=== PATIENT | female | born 1975 | race African-American/Black ===

== ENCOUNTER 2018-12-07 22:43 | Emergency (ER) | payer SELFPAY ==
[2018-12-07 22:53] VITALS: BP 136/80; PULSE 84; TEMP 98.4; BMI 27.4
--- NOTE | 2018-12-07 23:51 | PDOC ---
Documentation entered by Humble Mack SCRIBE, acting as scribe for Amari Akers MD. Amari Akers MD: This documentation has been prepared by the Frederick sultana Collisia, SCRIBE, under my direction and personally reviewed by me in its entirety. I confirm that the documentation accurately reflects all work, treatment, procedures, and medical decision making performed by me. Attending Attestation - Resident Resident Name: [email or web address] - ED Attending Attestation I have performed the following: I have examined & evaluated the patient, The case was reviewed & discussed with the resident, I agree w/resident's findings & plan, Exceptions are as noted - HPI HPI: 12/07/18 23:44 The patient is a 43 year old female with a significant past medical history of hyperlipidemia and bilateral knee pain who presents to the emergency department with an injury s/p fall prior to arrival to the ED. As per patients friends at the bedside, the patient was out tonight with then drinking and dancing when she was witnessed to have fallen and hit her head and be a bit out of it when she came to. It is noted that the patient had some possible loc of which the patient does not recall. She denies any prior symptom. She denies any chest pain , shortness of breath, headache, dizziness, fever, chills, nausea, vomiting, or diarrhea. She denies any complaints on exam. - Physicial Exam PE: 12/08/18 01:23 Vitals: Triage Vital signs reviewed General Appearance: no acute distress, well nourished well developed, Head: Atraumatic, Eyes: Pupils equal reactive round, extraocular movement intact Neck: Supple;No Nucal rigidity Chest Wall: Nontender Cardiac: Regular rate and rhythym, no murmurs, no rubs, no gallops, Lungs: Clear to auscultation bilateral, good air movement bilaterally, Abdomen: Soft, non distended, normal bowel sounds, non tender to palpation Extremities: Full range of motion to all extremities, no cyanosis, clubbing, or edema Skin: Warm and dry, no rashes or lesions, no rash, no petechiae Neuro: AOX3; Cranial Nerves 2-12 grossly intact, Strength intact to all extremities, Sensation intact to all extremities,gait normal Psych: normal mood, normal affect - Medical Decision Making 12/07/18 23:45 The patient is a 43 year old female with a significant past medical history of hyperlipidemia and bilateral knee pain who presents to the emergency department with an injury s/p fall prior to arrival to the ED. the patient will get a head CT. 43 years old was out drinking with her friends had a fall there was questionable loss of consciousness. Currently she has a normal neurologic examination asking to go home Given fall questionable LOC a CAT scan was performed which demonstrated no acute pathology Patient will return home with her friends and significant other who will check on her tonight every 3 hours to ensure she is arousable Very strict head injury precautions discussed with patient and significant other Findings, need follow-up and strict return instructions discussed.
--- NOTE | 2018-12-07 23:53 | PDOC ---
History of Present Illness - General Chief Complaint: Injury Stated Complaint: FALL Time Seen by Provider: 12/07/18 23:21 - History of Present Illness Initial Comments: Jono Shepherd is a 43yo woman who was BIBA after a fall at a constitution party tonight. She states that she does not remember falling but denies any pain or injury. She has several friends with her in the ED, but none of them witnessed the fall. The friends state that they were told that she did lose consciousness when she fell, and one of the friends states that Ms Shepherd was "out of it" following the fall but was able to get up and recognized her friends. Ms Shepherd is currently intoxicated and unable to provide additional information. Past History - Past Medical History Allergies/Adverse Reactions: Allergies Allergy/AdvReac Type Severity Reaction Status Date / Time No Known Allergies Allergy Verified 04/29/13 18:59 Home Medications: Ambulatory Orders Famotidine [Pepcid -] 20 mg PO DAILY 04/29/13 Simvastatin [Zocor] 40 mg PO HS 04/29/13 Tramadol HCl 50 mg PO 04/29/13 COPD: No Hypercholesterolemia: Yes - Surgical History Gastric Stapling: Yes (SLEEVE) - Suicide/Smoking/Psychosocial Hx Smoking History: Current every day smoker Number of Cigarettes Smoked Daily: 20 Information on smoking cessation initiated: No Review of Systems - Review of Systems Comments:: Could not obtain secondary to intoxication *Physical Exam - Vital Signs Last Vital Signs Temp Pulse Resp BP Pulse Ox 98.4 F 84 18 136/80 100 12/07/18 22:49 12/07/18 22:49 12/07/18 22:49 12/07/18 22:49 12/07/18 22:49 - Physical Exam Comments: General: Comfortable, no acute distress HEENT: No visible injury. No erythema, bogginess, or edema to posterior head. PERRL, EOMI, MMM, voice normal, normal neck ROM, no posterior neck TTP Cards: RRR, no murmur appreciated Pulm: Comfortable on room air, clear to auscultation bilaterally Back: No step-offs, no bony TTP, no abrasion, no erythema, no bruising Abd: Soft, nontender, nondistended Ext: Atraumatic. No LE edema. ROM intact Vasc: Extremities WWP Skin: Normal color, no rashes or lesions Neuro: A&Ox3, CN grossly intact, normal speech, motor/sensory grossly intact and symmetric Psych: Mood appropriate to situation ED Treatment Course - RADIOLOGY Radiology Studies Ordered: Category Date Time Status HEAD CT WITHOUT CONTRAST [CT] Stat CT Scan 12/07/18 23:32 Ordered Medical Decision Making - Medical Decision Making 12/07/18 23:36 Jono Shepherd is a 43yo woman who was BIBA after a fall at a [employer] party tonight, unwitnessed by anyone present, with a possible LOC. She states that she does not remember the fall, denies pain or injury, and currently has no deficits. - No visible head trauma - Observed ambulating in the ED - No neurological deficits currently - Given report of LOC, will CT head to evaluate for bleed. Likely d/c home if CT is negative. Pt reports she had a hysterectomy and cannot be . - According to friends at bedside, will have family/friends with her overnight 12/08/18 00:07 - CT reviewed. No acute abnormalities appreciated. Radiology report pending - Updated Ms Shepherd. Still no pain or other symptoms - Signed out to Dr Banks for the remainder of her ED care. Seen with Dr Akers. Micheline Tilley PGY1 *DC/Admit/Observation/Transfer Diagnosis at time of Disposition: Closed head injury Qualifiers: Encounter type: initial encounter Qualified Code(s): S09.90XA - Unspecified injury of head, initial encounter Alcohol intoxication Qualifiers: Complication of substance-induced condition: uncomplicated Qualified Code(s): F10.920 - Alcohol use, unspecified with intoxication, uncomplicated - Discharge Dispostion Disposition: HOME Condition at time of disposition: Stable Decision to Admit order: No - Referrals Referrals: [facility] [place] [facility] [place] [Provider Group] - Patient Instructions Printed Discharge Instructions: DI for Closed Head Injury Additional Instructions: Discharge Instructions: You were seen in the emergency department following a fall. You had a head CT that did not show any serious injury. Home Care and Follow Up: - You may use over the counter medications as needed for pain at home. 650- 1000mg acetaminophen (Tylenol) or 600mg ibuprofen (Motrin or Advil) can be used every 6-8 hours. If needed for continued pain, these medications may be alternated every 3-4 hours. For example, if you take ibuprofen at 9am, you may take acetaminophen at noon, ibuprofen at 3pm, etc. - It is strongly recommended that you take ibuprofen with food to help prevent stomach irritation. - You may have back or body pain tomorrow due to your fall. Try using an ice pack for 20 minutes every hour or a heating pad for additional pain control. These should NOT be used over the lidocaine patch, but you may place them over the areas of pain while the patch is off. - Do not stop moving around even if you have pain. As much as you can tolerate, continue to do light exercise and stretching exercises. Increase your activity level as much as you can tolerate daily. - If your pain does not improve over the next week, follow up with your regular doctor. If you need to establish care, you have been referred to the [facility] [place] clinic. - Seek immediate medical care if you have significant worsening of your symptoms , you are unusually sleepy or difficult to wake, you are confused, you have 2+ episodes of vomiting per hour for 2 or more hours, you have any neurological symptoms such as one-sided numbness or weakness, you have changes in your vision , you are unable to turn your head normally, or you have any other medical emergency. - Post Discharge Activity
--- NOTE | 2018-12-08 00:07 | PDOC ---
*Physical Exam - Vital Signs Last Vital Signs Temp Pulse Resp BP Pulse Ox 98.4 F 84 18 136/80 100 12/07/18 22:49 12/07/18 22:49 12/07/18 22:49 12/07/18 22:49 12/07/18 22:49 Medical Decision Making - Medical Decision Making 12/08/18 00:05 Patient signed out by Dr. Tilley (Resident) and under the care of Dr. Akers ( Attending) 43 year old female s/p fall. Ambulatory post fall. Actively intoxicated @ presentation Head CT pending 12/08/18 00:07 Patient reassessed @ bedside. No active medical complaints, requesting d/c home. 12/08/18 00:[address] negative Attending reassessed patient @ bedside, counseled on return precautions and discharged home with family. *DC/Admit/Observation/Transfer Diagnosis at time of Disposition: Closed head injury Qualifiers: Encounter type: initial encounter Qualified Code(s): S09.90XA - Unspecified injury of head, initial encounter Alcohol intoxication Qualifiers: Complication of substance-induced condition: uncomplicated Qualified Code(s): F10.920 - Alcohol use, unspecified with intoxication, uncomplicated - Discharge Dispostion Disposition: HOME Condition at time of disposition: Stable - Referrals Referrals: [facility] [place] [facility] [place] [Provider Group] - Patient Instructions Printed Discharge Instructions: DI for Closed Head Injury Additional Instructions: Discharge Instructions: You were seen in the emergency department following a fall. You had a head CT that did not show any serious injury. Home Care and Follow Up: - You may use over the counter medications as needed for pain at home. 650- 1000mg acetaminophen (Tylenol) or 600mg ibuprofen (Motrin or Advil) can be used every 6-8 hours. If needed for continued pain, these medications may be alternated every 3-4 hours. For example, if you take ibuprofen at 9am, you may take acetaminophen at noon, ibuprofen at 3pm, etc. - It is strongly recommended that you take ibuprofen with food to help prevent stomach irritation. - You may have back or body pain tomorrow due to your fall. Try using an ice pack for 20 minutes every hour or a heating pad for additional pain control. These should NOT be used over the lidocaine patch, but you may place them over the areas of pain while the patch is off. - Do not stop moving around even if you have pain. As much as you can tolerate, continue to do light exercise and stretching exercises. Increase your activity level as much as you can tolerate daily. - If your pain does not improve over the next week, follow up with your regular doctor. If you need to establish care, you have been referred to the [facility] clinic. - Seek immediate medical care if you have significant worsening of your symptoms , you are unusually sleepy or difficult to wake, you are confused, you have 2+ episodes of vomiting per hour for 2 or more hours, you have any neurological symptoms such as one-sided numbness or weakness, you have changes in your vision , you are unable to turn your head normally, or you have any other medical emergency. - Post Discharge Activity
== END 2018-12-08 00:34 | disposition home or self-care (01) ==
LOC: JER 22:43
DX: F10.120 Alcohol abuse with intoxication, uncomplicated (principal); S09.8XXA Other specified injuries of head, initial encounter; W18.39XA Other fall on same level, initial encounter; Y93.89 Activity, other specified; Y92.89 Other specified places as the place of occurrence of the external cause; Y99.8 Other external cause status
CPT/HCPCS: 70450-TC; 99281-25